=== PATIENT | male | born 1985 | race American Indian/Alaskan Native ===

== ENCOUNTER 2018-09-18 14:28 | Emergency (ER) | payer SELFPAY ==
[2018-09-18 14:41] VITALS: BP 140/79
--- NOTE | 2018-09-18 14:42 | Event Note ---
ED Screening Note Date of service: 09/18/18 Time: 14:39 ED Screening Note: This is a 33 y.o. M. that presents to the ER with bilateral hand pain and swelling. Patient hit a wall with both fist last night and pain every since. Current marijuana smoker PMH of PTSD This initial assessment/diagnostic orders/clinical plan/treatment(s) is/are subject to change based on patients health status, clinical progression and re- assessment by fellow clinical providers in the ED. Further treatment and workup at subsequent clinical providers discretion. Patient/guardian urged not to elope from the ED as their condition may be serious if not clinically assessed and managed. Initial orders include: XR Hands
--- NOTE | 2018-09-18 15:42 | Emergency Department Report ---
ED Extremity Problem HPI - General Chief complaint: Extremity Injury, Upper Stated complaint: L HAND INJURY Time Seen by Provider: 09/18/18 14:39 Source: patient Mode of arrival: Ambulatory Limitations: No Limitations - History of Present Illness Initial comments: Patient is a 33-year-old [place] male who was angry yesterday evening and punched a wall. Patient is experiencing swelling and pain to the bilateral hands. Patient isswelling and difficulty making a fist with the bilateral hands. Pain is 5 out of 10 in severity. Aching and throbbing. Worse with making a fist. Patient denies any other injury. - Related Data Previous Rx's Medication Instructions Recorded Last Taken Type Ibuprofen [Motrin 800 MG tab] 800 mg PO Q8HR PRN #10 tablet 09/18/18 Unknown Rx Allergies Allergy/AdvReac Type Severity Reaction Status Date / Time No Known Allergies Allergy Unverified 09/18/18 14:29 ED Review of Systems ROS: Stated complaint: L HAND INJURY Other details as noted in HPI Comment: All other systems reviewed and negative ED Past Medical Hx - Past Medical History Previous Medical History?: No Hx Asthma: No - Surgical History Past Surgical History?: Yes Additional Surgical History: T&A - Social History Smoking Status: Former Smoker Substance Use Type: Alcohol, Marijuana - Medications Home Medications: Home Medications Medication Instructions Recorded Confirmed Last Taken Type Ibuprofen [Motrin 800 MG tab] 800 mg PO Q8HR PRN #10 tablet 09/18/18 Unknown Rx ED Physical Exam - General Limitations: No Limitations General appearance: alert, in no apparent distress - Head Head exam: Present: atraumatic, normocephalic - Eye Eye exam: Present: normal appearance - ENT ENT exam: Present: mucous membranes moist - Neck Neck exam: Present: normal inspection - Respiratory Respiratory exam: Absent: respiratory distress - GI/Abdominal GI/Abdominal exam: Present: soft. Absent: distended - Rectal Rectal exam: Present: deferred - Extremities Exam Extremities exam: Present: normal inspection, other (on the patient's left hand he has swelling and tenderness overlying the fifth met at carpal. The right hand the patient has some tenderness at the MCP joint of the third digit. Patient can make a fist but there is some pain associated with making a fist and there is full range of motion.) - Back Exam Back exam: Present: normal inspection - Neurological Exam Neurological exam: Present: alert, oriented X3 - Psychiatric Psychiatric exam: Present: normal affect, normal mood - Skin Skin exam: Present: warm, dry, intact, normal color. Absent: rash ED Course Vital Signs 09/18/18 14:39 Temperature 98.4 F Pulse Rate 78 Respiratory 18 Rate Blood Pressure 140/79 O2 Sat by Pulse 100 Oximetry ED Medical Decision Making - Radiology Data Radiology results: image reviewed - Medical Decision Making To use rice therapy will be discharged home. No fractures are seen on his x- rays. Critical care attestation.: If time is entered above; I have spent that time in minutes in the direct care of this critically ill patient, excluding procedure time. ED Disposition Clinical Impression: Hand contusion Qualifiers: Encounter type: initial encounter Laterality: unspecified laterality Qualified Code(s): S60.229A - Contusion of unspecified hand, initial encounter Disposition: DC-01 TO HOME OR SELFCARE Is pt being admited?: No Does the pt Need Aspirin: No Condition: Stable Instructions: Contusion in Adults (ED) Referrals: MARGY CANTU MD [Primary Care Provider] - 3-5 Days Time of Disposition: 15:42
--- NOTE | 2018-09-18 16:31 | XRay Report ---
Bilateral hands, 2 views INDICATION: Bilateral hand pain after hitting wall yesterday. COMPARISON: None. IMPRESSION: No acute osseous or soft tissue abnormality. No significant DJD. Signer Name: Sami Titus Jr, MD Signed: 09/18/2018 4:27 PM Workstation Name: [id number]
== END 2018-09-18 16:00 | disposition home or self-care (01) ==
LOC: ED 14:28
DX: S60.222A Contusion of left hand, initial encounter (principal); S60.221A Contusion of right hand, initial encounter; Z87.891 Personal history of nicotine dependence; Z79.899 Other long term (current) drug therapy; W22.01XA Walked into wall, initial encounter; Y93.89 Activity, other specified; Y92.89 Other specified places as the place of occurrence of the external cause; Y99.8 Other external cause status

== ENCOUNTER 2019-03-23 09:22 | Emergency (ER) | payer SELFPAY ==
[2019-03-23 09:31] VITALS: BP 143/85
[2019-03-23] MEDS ORDERED: IBUPROFEN 600 MG TAB PO ONE (11:52)
--- NOTE | 2019-03-23 12:11 | Emergency Department Report ---
- General Chief Complaint: Upper Respiratory Infection Stated Complaint: FLU SX Time Seen by Provider: 03/23/19 11:33 Source: patient Mode of arrival: Ambulatory Limitations: No Limitations - History of Present Illness Initial Comments: 34-year-old gentleman, not known to myself previously, occasionally consumes marijuana, presenting with 2-3 days of body aches, cough, green mucus production. No complaint of severe headache, no neck pain, no chest pain, no abdominal pain, no urinary symptoms and no shortness of breath. He has taken [id number] TheraFlu with some improvement in symptoms. No sick contacts that he is aware of. MD Complaint: cough, sore throat, rhinorrhea, nasal congestion -: Gradual, days(s) Consistency: intermittent Improves With: nothing Worsens With: nothing Associated Symptoms: rhinorrhea, nasal congestion, cough - Related Data Previous Rx's Medication Instructions Recorded Last Taken Type Ibuprofen [Motrin 800 MG tab] 800 mg PO Q8HR PRN #10 tablet 09/18/18 Unknown Rx Acetaminophen [Non-Aspirin Extra 500 mg PO Q6HR PRN #30 tablet 03/23/19 Unknown Rx Strength] Albuterol Sulfate [Proair 90 mcg IH Q4HR PRN #2 aer.pow.ba 03/23/19 Unknown Rx Respiclick] Benzonatate [Tessalon Perles] 100 mg PO Q8HR PRN #30 capsule 03/23/19 Unknown Rx Fluticasone [Flonase] 1 spray NS QDAY #1 bottle 03/23/19 Unknown Rx Ibuprofen [Motrin] 600 mg PO Q8H PRN #30 tablet 03/23/19 Unknown Rx Allergies Allergy/AdvReac Type Severity Reaction Status Date / Time No Known Allergies Allergy Unverified 09/18/18 14:29 ED Review of Systems ROS: Stated complaint: FLU SX Other details as noted in HPI Eyes: denies: eye discharge, vision change ENT: congestion Respiratory: cough Cardiovascular: denies: syncope Gastrointestinal: denies: abdominal pain Musculoskeletal: arthralgia, myalgia Neurological: denies: weakness ED Past Medical Hx - Past Medical History Previous Medical History?: No Hx Asthma: No - Surgical History Past Surgical History?: Yes Additional Surgical History: T&A - Social History Smoking Status: Never Smoker Substance Use Type: Marijuana - Medications Home Medications: Home Medications Medication Instructions Recorded Confirmed Last Taken Type Ibuprofen [Motrin 800 MG tab] 800 mg PO Q8HR PRN #10 tablet 09/18/18 Unknown Rx Acetaminophen [Non-Aspirin Extra 500 mg PO Q6HR PRN #30 tablet 03/23/19 Unknown Rx Strength] Albuterol Sulfate [Proair 90 mcg IH Q4HR PRN #2 aer.pow.ba 03/23/19 Unknown Rx Respiclick] Benzonatate [Tessalon Perles] 100 mg PO Q8HR PRN #30 capsule 03/23/19 Unknown Rx Fluticasone [Flonase] 1 spray NS QDAY #1 bottle 03/23/19 Unknown Rx Ibuprofen [Motrin] 600 mg PO Q8H PRN #30 tablet 03/23/19 Unknown Rx ED Physical Exam - General Limitations: No Limitations General appearance: alert, in no apparent distress - Head Head exam: Present: atraumatic, normocephalic - Eye Eye exam: Present: normal appearance, EOMI. Absent: nystagmus - ENT ENT exam: Present: normal exam, normal orophraynx, mucous membranes moist, normal external ear exam - Neck Neck exam: Present: normal inspection, full ROM. Absent: tenderness, meningismus - Respiratory Respiratory exam: Present: normal lung sounds bilaterally. Absent: respiratory distress, wheezes, rales, rhonchi, stridor, chest wall tenderness - Cardiovascular Cardiovascular Exam: Present: regular rate, normal rhythm, normal heart sounds. Absent: bradycardia, tachycardia, irregular rhythm, systolic murmur, diastolic murmur, rubs, gallop - GI/Abdominal GI/Abdominal exam: Present: soft. Absent: distended, tenderness, guarding, rebound, rigid, pulsatile mass - Rectal Rectal exam: Present: deferred - Extremities Exam Extremities exam: Present: normal inspection, full ROM, other (2+ pulses noted in the bilateral upper and lower extremities. There is no long bony tenderness. The pelvis is stable. The muscular compartments are soft. There is no palpable cord. There is no redness, pus or streaking.). Absent: pedal edema, calf tenderness - Back Exam Back exam: Present: normal inspection, full ROM. Absent: tenderness, CVA tenderness (R), CVA tenderness (L), paraspinal tenderness, vertebral tenderness - Neurological Exam Neurological exam: Present: alert, normal gait, other (there is no facial droop. Tongue is midline. Extraocular movements are intact bilaterally. Walking with a steady gait. Speaking in full sentences. Normal appropriate thought content. 5 out of 5 strength in 4 extremities. Sensation is intact to light touch in 4 extremities.). Absent: motor sensory deficit - Psychiatric Psychiatric exam: Present: normal affect, normal mood - Skin Skin exam: Present: warm, dry, intact, normal color. Absent: rash ED Course Vital Signs 03/23/19 09:26 Temperature 98.1 F Pulse Rate 97 H Respiratory 18 Rate Blood Pressure 143/85 O2 Sat by Pulse 97 Oximetry ED Medical Decision Making - Medical Decision Making Vital Signs 03/23/19 09:26 Temperature 98.1 F Pulse Rate 97 H Respiratory 18 Rate Blood Pressure 143/85 O2 Sat by Pulse 97 Oximetry Differential diagnosis, including but not limited to: Bronchitis, viral syndrome, influenza-like illness Assessment and plan: 34-year-old gentleman with 2 days of viral symptoms. He is afebrile with reassuring vital signs and clinically well-appearing. No focal pulmonary findings on my examination. Does not have any high risk medical comorbidities. Through shared decision-making, patient prefers to avoid x-ray of the chest secondary to radiation concerns, and he does not want to participate in Tamiflu therapy as he is concerned about side effect profile. He is reliable to return, I think that this plan of care is reasonable. Return precautions are reviewed. Critical care attestation.: If time is entered above; I have spent that time in minutes in the direct care of this critically ill patient, excluding procedure time. ED Disposition Clinical Impression: Viral syndrome Disposition: DC-01 TO HOME OR SELFCARE Is pt being admited?: No Does the pt Need Aspirin: No Condition: Stable Additional Instructions: Symptoms likely coming from cold and/or virus. These are typically self resolving. Wash hands with soap and water after coughing and sneezing, and before handling food. Take the medications as needed and directed, advance diet as tolerated, drink plenty of fluids, follow up with a physician within 7-10 days for repeat checkup and evaluation, avoid consumption and exposure of smoke and smoke products. Return to emergency room right away with new, worsening or different symptoms, or symptoms not present on the initial emergency room evaluation. Prescriptions: Fluticasone [Flonase] 1 spray NS QDAY #1 bottle Ibuprofen [Motrin] 600 mg PO Q8H PRN #30 tablet PRN Reason: Pain Acetaminophen [Non-Aspirin Extra Strength] 500 mg PO Q6HR PRN #30 tablet PRN Reason: Pain , Severe (7-10) Albuterol Sulfate [Proair Respiclick] 90 mcg IH Q4HR PRN #2 aer.pow.ba PRN Reason: Wheezing Benzonatate [Tessalon Perles] 100 mg PO Q8HR PRN #30 capsule PRN Reason: Cough Referrals: [facility] [Provider Group] - 7-10 days [facility] [Provider Group] - 7-10 days Forms: Accompanied Note, Work/School Release Form(ED)
== END 2019-03-23 12:19 | disposition home or self-care (01) ==
LOC: ED 09:22
DX: B34.9 Viral infection, unspecified (principal); F12.10 Cannabis abuse, uncomplicated; Z79.899 Other long term (current) drug therapy
CPT/HCPCS: 99282

== ENCOUNTER 2020-04-03 18:31 | Emergency (ER) | payer SELFPAY ==
[2020-04-03 18:39] VITALS: BP 150/81
[2020-04-03] MEDS ORDERED: KETOROLAC 30 MG/1 ML INJ IM ONE (21:12)
--- NOTE | 2020-04-03 21:29 | Emergency Department Report ---
ED General Adult HPI - General Chief complaint: Back Pain/Injury Stated complaint: BACK PAIN Time Seen by Provider: 04/03/20 20:30 Source: patient Mode of arrival: Ambulatory Limitations: No Limitations - History of Present Illness Initial comments: 35-year-old -[place] male patient presents with complaints of mid right- sided back pain x3 days. Patient states his pain started upon picking up his 3-year-old son and he felt a pop in his back. He describes the pain as tightness and rates it as a 8/10 in severity. He states OTC anti-inflammatories are not helping. He denies any urinary symptoms, chest pain, shortness of breath, cough, numbness/tingling/weakness in his limbs, difficulty with ambulation, or difficulty moving his back. No prior medical history per patient - Related Data Previous Rx's Medication Instructions Recorded Last Taken Type Ibuprofen [Motrin 800 MG tab] 800 mg PO Q8HR PRN #10 tablet 09/18/18 Unknown Rx Acetaminophen [Non-Aspirin Extra 500 mg PO Q6HR PRN #30 tablet 03/23/19 Unknown Rx Strength] Albuterol Sulfate [Proair 90 mcg IH Q4HR PRN #2 aer.pow.ba 03/23/19 Unknown Rx Respiclick] Benzonatate [Tessalon Perles] 100 mg PO Q8HR PRN #30 capsule 03/23/19 Unknown Rx Fluticasone [Flonase] 1 spray NS QDAY #1 bottle 03/23/19 Unknown Rx Ibuprofen [Motrin] 600 mg PO Q8H PRN #30 tablet 03/23/19 Unknown Rx Acetaminophen/Codeine [Tylenol 1 tab PO Q8H PRN #10 tab 04/03/20 Unknown Rx /Codeine # 3 tab] Diclofenac Sodium 75 mg PO BID PRN #14 tablet. 04/03/20 Unknown Rx methocarbamoL [Methocarbamol] 1,500 mg PO TID PRN #30 tablet 04/03/20 Unknown Rx Allergies Allergy/AdvReac Type Severity Reaction Status Date / Time No Known Allergies Allergy Verified 04/03/20 18:33 ED Review of Systems ROS: Stated complaint: BACK PAIN Other details as noted in HPI Respiratory: denies: cough, shortness of breath Cardiovascular: denies: chest pain, edema Musculoskeletal: back pain Neurological: denies: headache, weakness, numbness, abnormal gait ED Past Medical Hx - Past Medical History Hx Asthma: No - Surgical History Additional Surgical History: T&A - Social History Smoking Status: Never Smoker Substance Use Type: Marijuana - Medications Home Medications: Home Medications Medication Instructions Recorded Confirmed Last Taken Type Ibuprofen [Motrin 800 MG tab] 800 mg PO Q8HR PRN #10 tablet 09/18/18 Unknown Rx Acetaminophen [Non-Aspirin Extra 500 mg PO Q6HR PRN #30 tablet 03/23/19 Unknown Rx Strength] Albuterol Sulfate [Proair 90 mcg IH Q4HR PRN #2 aer.pow.ba 03/23/19 Unknown Rx Respiclick] Benzonatate [Tessalon Perles] 100 mg PO Q8HR PRN #30 capsule 03/23/19 Unknown Rx Fluticasone [Flonase] 1 spray NS QDAY #1 bottle 03/23/19 Unknown Rx Ibuprofen [Motrin] 600 mg PO Q8H PRN #30 tablet 03/23/19 Unknown Rx Acetaminophen/Codeine [Tylenol 1 tab PO Q8H PRN #10 tab 04/03/20 Unknown Rx /Codeine # 3 tab] Diclofenac Sodium 75 mg PO BID PRN #14 tablet. 04/03/20 Unknown Rx methocarbamoL [Methocarbamol] 1,500 mg PO TID PRN #30 tablet 04/03/20 Unknown Rx ED Physical Exam - General Limitations: No Limitations General appearance: alert, in no apparent distress - Head Head exam: Present: atraumatic, normocephalic - Eye Eye exam: Present: normal appearance. Absent: scleral icterus - ENT ENT exam: Present: mucous membranes moist - Neck Neck exam: Present: normal inspection, full ROM - Respiratory Respiratory exam: Absent: respiratory distress - Cardiovascular Cardiovascular Exam: Present: regular rate, normal rhythm. Absent: systolic murmur, diastolic murmur, rubs, gallop - Extremities Exam Extremities exam: Present: full ROM - Back Exam Back exam: Present: full ROM, paraspinal tenderness (right, mid thoracic ) - Neurological Exam Neurological exam: Present: alert, oriented X3, normal gait. Absent: motor sensory deficit - Psychiatric Psychiatric exam: Present: normal affect, normal mood - Skin Skin exam: Present: warm, dry, intact, normal color. Absent: rash, cyanosis, diaphoretic ED Course Vital Signs 04/03/20 04/03/20 04/03/20 18:37 22:07 22:15 Temperature 98.1 F Pulse Rate 103 H 74 Respiratory 20 18 18 Rate Blood Pressure 150/81 O2 Sat by Pulse 99 100 Oximetry Critical care attestation.: If time is entered above; I have spent that time in minutes in the direct care of this critically ill patient, excluding procedure time. ED Disposition Clinical Impression: Thoracic myofascial strain Qualifiers: Encounter type: initial encounter Qualified Code(s): S29.019A - Strain of muscle and tendon of unspecified wall of thorax, initial encounter Disposition: TO HOME OR SELFCARE Is pt being admited?: No Condition: Stable Instructions: Thoracic Strain Prescriptions: Diclofenac Sodium 75 mg PO BID PRN #14 tablet. PRN Reason: Pain, Moderate (4-6) methocarbamoL [Methocarbamol] 1,500 mg PO TID PRN #30 tablet PRN Reason: muscle spasm/tightness Acetaminophen/Codeine [Tylenol /Codeine # 3 tab] 1 tab PO Q8H PRN #10 tab PRN Reason: Pain , Severe (7-10) Referrals: [facility] [Provider Group] - 3-5 Days
== END 2020-04-03 22:15 | disposition home or self-care (01) ==
LOC: ED 18:31
DX: S29.019A Strain of muscle and tendon of unspecified wall of thorax, initial encounter (principal); F12.90 Cannabis use, unspecified, uncomplicated; Z79.899 Other long term (current) drug therapy; X58.XXXA Exposure to other specified factors, initial encounter; Y93.89 Activity, other specified; Y92.89 Other specified places as the place of occurrence of the external cause; Y99.8 Other external cause status
CPT/HCPCS: 96372; 99282; J1885